=== PATIENT | male | born 1955 | race Caucasian/White ===

== ENCOUNTER → 2018-06-13 | Outpatient (CLI) | payer BC ==
[~2018-06-13] MED LIST: ACTOS 45MG45 MG/TAB PO; BACTRIM DS 8001 TAB PO; CEPHALEXIN500 M1 PO; GLUCOTROL10 MG PO; HCTZ 25MG TAB25 MG PO; HUMALOG100 U/ML SC; LANTUS100 U/ML SQ; PRINZIDE 12.5 M1 TAB PO; SYNTHROID 0.0.025 MG PO
== END ==
LOC: COL.RAD 08:39
DX: S86.112A Strain of other muscle(s) and tendon(s) of posterior muscle group at lower leg level, left leg, initial encounter (principal); S86.111A Strain of other muscle(s) and tendon(s) of posterior muscle group at lower leg level, right leg, initial encounter; M17.0 Bilateral primary osteoarthritis of knee; M62.561 Muscle wasting and atrophy, not elsewhere classified, right lower leg; M62.562 Muscle wasting and atrophy, not elsewhere classified, left lower leg